=== PATIENT | female | born 1985 | race Caucasian/White ===

== ENCOUNTER 2024-11-21 18:14 | Observation (INO) ==
--- NOTE | 2024-11-21 18:43 | Emergency Department Note ---
Impression & Plan Abdominal pain, epigastric, Intractable abdominal pain ED Provider Note HISTORY OF PRESENT ILLNESS: Patient is a 38-year-old female presenting with epigastric abdominal pain. Patient reports that pain started a few days ago and has gotten progressively worse. She reports she has a history of chronic pancreatitis. She is from [place] and follows with a specialist for her chronic pancreatitis in [facility]. Reports that they were talking about potentially doing the Chasity procedure for her chronic pancreatitis. [facility] States that pain significantly worsened today while trying to eat some rice at lunch. She states the pain is in her epigastric region and radiates into her back. Denies any vomiting or diarrhea but does report nausea. Denies any fevers. Reports abdominal surgical history significant for sections. ROS: as above PHYSICAL EXAM: Constitutional: Patient appears in no acute distress. HENT: Head: Normocephalic and atraumatic. Eyes: EOMI, PERRL Mouth/Throat: Mucous membranes moist. Neck: Trachea midline. Neck supple. Cardiovascular: RRR, No murmurs, rubs or gallops. Intact distal pulses. Pulmonary/Chest: No respiratory distress. Breath sounds clear and equal bilaterally. No wheezes or rales. Abdominal: Abdomen soft, no rebound or guarding. Epigastric and RUQ TTP Musculoskeletal: No edema, tenderness or deformity noted. Skin: Warm and dry. No rash, erythema, pallor or cyanosis Psychiatric: Appropriate mood and affect for situation. Neurological: Alert and keenly responsive. CN II-XII grossly intact, moving all extremities equally and fully. MDM: - Vitals signs stable. - History obtained via patient. History as above. - Chronic conditions affecting care: Chronic pancreatitis - Differential diagnoses include, but are not limited to: ACS; pancreatitis; cholecystitis; bowel obstruction; peptic ulcer disease - Order placed for continuous cardiac monitoring. At this time, monitor showed rate of 70 bpm with normal sinus rhythm, per my interpretation. - External medical records reviewed. S - Laboratory workup interpreted by myself showed normal WBC; stable electrolytes; normal AST/ALT; normal total bilirubin; normal lactate; normal lipase; negative hCG - Patient given 1L NS, 1g IV tylenol, 4 mg IV zofran and 2 mg IV morphine in ER. - CT abdomen/pelvis with IV contrast negative for acute pathology. Noted to have some proximal pancreatic ductal dilatation and moderate atrophy of the body and tail. No appreciable acute pancreatitis but further evaluation was recommended to rule out pancreatic mass. - UA negative for infection - On reassessment, patient is still complaining of significant abdominal pain. Will discuss case with hospitalist service. - Discussion was had with mattress spring encaser about patient's case and need for admission - Hospitalist consulted for admission - Patient admitted to [facility] hospitalist service for further evaluation and management. ASSESSMENT AND PLAN: Diagnosis: Epigastric abdominal pain; intractable abdominal pain Plan: Admit Past Med/Surg History Problem List (Updated 11/22/24 @ 00:26 by Antoinette Barney MD) Intractable abdominal pain (Acute) Abdominal pain, epigastric (Acute) Abdominal pain Social History Smoking Status: Current every day smoker Tobacco Type: E-cigarettes / Vaping Preferred Language: Salvadorean Allergies Allergies Allergy/AdvReac Type Severity Reaction Status Date / Time aluminum Allergy Unknown ON [place] Verified 11/21/24 20:48 MED LIST Home Meds Home Medications Medication Instructions Recorded Confirmed acetaminophen 325 mg tablet 650 mg PO Q6H PRN Pain 11/21/24 11/21/24 (Tylenol) cholecalciferol (vitamin D3) 125 125 mcg PO DAILY 11/21/24 11/21/24 mcg (5,000 unit) tablet (Vitamin D3) clonazepam 1 mg tablet 2 mg PO Q4H PRN Alcohol Withdrawal 11/21/24 11/21/24 folic acid 1 mg tablet 1 mg PO DAILY 11/21/24 11/21/24 food supplemt, lactose-reduced 1 ea PO PC PRN IF PT UNABLE TO EAT. 11/21/24 11/21/24 (Ensure oral liquid) loperamide 2 mg capsule 2 mg PO Q4H PRN Diarrhea 11/21/24 11/21/24 melatonin 3 mg tablet 6 mg PO HS PRN Insomnia 11/21/24 11/21/24 multivitamin 1 tab PO DAILY 11/21/24 11/21/24 nicotine 21 mg/24 hr daily 1 patch transdermal DAILY PRN 11/21/24 11/21/24 transdermal patch Smoking Cessation nitrofurantoin 100 mg PO BID 11/21/24 11/21/24 monohydrate/macrocrystals 100 mg capsule (Macrobid) oxycodone 5 mg tablet 10 mg PO BID PRN Pain 11/21/24 11/21/24 pantoprazole 40 mg tablet,delayed 40 mg PO DAILY 11/21/24 11/21/24 release thiamine HCl (vitamin B1) 100 mg 100 mg PO DAILY 11/21/24 11/21/24 tablet (Vitamin B-1) trazodone 50 mg tablet 50 mg PO HS 11/21/24 11/21/24 Results & Data (ED) Vital Signs Vital Signs - 24 hr 11/21/24 18:16 11/21/24 18:35 11/21/24 18:38 Temperature 36.4 C L Temperature Source Oral Pulse Rate 87 81 77 Respiratory Rate 22 13 Blood Pressure 127/78 110/70 Blood Pressure Mean 94 93 Pulse Oximetry 97 100 Oxygen Delivery Method Room Air Sepsis Recent Fever Within 48 Hours No Sepsis New/Unexplained Change in Mental Status No Sepsis Action Taken by Nursing No Action Required 11/21/24 19:00 11/21/24 19:30 11/21/24 20:01 Temperature Temperature Source Pulse Rate 80 77 77 Respiratory Rate 16 16 16 Blood Pressure 96/74 L 104/69 133/98 Blood Pressure Mean 79 78 101 Pulse Oximetry 100 100 95 Oxygen Delivery Method Sepsis Recent Fever Within 48 Hours Sepsis New/Unexplained Change in Mental Status Sepsis Action Taken by Nursing 11/21/24 22:00 Temperature Temperature Source Pulse Rate 69 Respiratory Rate 14 Blood Pressure 121/92 Blood Pressure Mean 100 Pulse Oximetry 99 Oxygen Delivery Method Sepsis Recent Fever Within 48 Hours Sepsis New/Unexplained Change in Mental Status Sepsis Action Taken by Nursing Laboratory Data 11/21/24 18:35 11/21/24 18:35 Lab Results 11/21/24 Range/Units 18:35 WBC 6.09 (4.8-10.8) K/ul RBC 3.76 L (4.20-5.40) M/uL Hgb 11.1 L (12.0-16.0) g/dl Hct 33.7 L (37.0-47.0) % MCV 89.6 (80.0-100.0) fL MCH 29.5 (25.0-34.0) pg MCHC 32.9 (32.0-36.0) g/dL RDW Std Deviation 48.4 H (36.4-46.3) fL RDW Coeff of Jose 14.7 H (11.5-14.5) % Plt Count 277 (130-400) K/uL MPV 10.2 (9.4-12.4) fL Immature Gran % (Auto) 0.2 % Neut % (Auto) 55.6 % Lymph % (Auto) 32.0 % [place] % (Auto) 8.9 % Eos % (Auto) 2.6 % Baso % (Auto) 0.7 % Neut # (Auto) 3.39 (1.40-6.50) K/uL Lymph # (Auto) 1.95 (1.20-3.40) K/uL [place] # (Auto) 0.54 (0.11-0.59) K/uL Eos # (Auto) 0.16 (0.00-0.50) K/uL Baso # (Auto) 0.04 (0.00-0.20) K/uL Immature Gran # (Auto) 0.01 (0.01-0.20) K/uL Sodium 136 (136-145) mmol/L Potassium 4.1 (3.5-5.1) mmol/L Chloride 102 (98-107) mmol/L Carbon Dioxide 26 (21-32) mmol/L Anion Gap 8 (3-11) BUN 10 (6-23) mg/dl Creatinine 0.72 (0.6-1.2) mg/dl Est Cr Clr Drug Dosing 104.3 ml/min eGFR 110.37 BUN/Creatinine Ratio 13.9 (10-20) Glucose 112 H (70-99(Fasting)) mg/dl Lactate 1.3 (0.4-2.0) mmol/L Calcium 9.6 (8.6-10.3) mg/dl Total Bilirubin 0.2 (0.2-1.0) mg/dl AST 14 (13-39) U/L ALT 10 (7-52) U/L Alkaline Phosphatase 64 (34-104) U/L Total Protein 7.4 (6.0-8.3) gm/dl Albumin 4.0 (3.4-5.0) gm/dl Globulin 3.4 (2.5-4.0) gm/dl Albumin/Globulin Ratio 1.2 (0.9-2) Lipase 17 (11-82) U/L HCG, Qual Negative (Negative) Urine Color Yellow Urine Appearance Clear (Clear) Urine pH 6.5 (4.5-7.5) Ur Specific [place] 1.004 (1.000-1.030) Urine Protein Negative (Negative) Urine Glucose (UA) Negative (Negative) Urine Ketones Negative (Negative) Urine Blood Negative (Negative) Urine Nitrite Negative (Negative) Urine Bilirubin Negative (Negative) Urine Urobilinogen Negative (Negative) Ur Leukocyte Esterase Negative (Negative) Urine Comment Administered Medications Hydromorphone HCl (Hydromorphone Inj 0.5 Mg/0.5 Ml Syr) 0.5 mg IV Q4H PRN PRN Reason: Mod-Sev Pain (Scale 4-10) Stop: 12/05/24 23:25 Last Admin: 11/22/24 00:13 Dose: 0.5 mg Documented By: KELSY Discontinued Medications Hydromorphone HCl (Hydromorphone Inj 0.5 Mg/0.5 Ml Syr) 0.5 mg IV NOW STA Stop: 11/21/24 22:21 Last Admin: 11/21/24 22:39 Dose: 0.5 mg Documented By: KELSY Sodium Chloride (Nss) 1,000 mls @ 999 mls/hr IV .Q1H1M ONE Stop: 11/21/24 19:49 Last Infusion: 11/21/24 20:25 Dose: Infused Documented By: Admin: 11/21/24 19:29 Dose: 999 mls/hr Documented By: ANT Acetaminophen (Ofirmev) 1,000 mg in 100 mls @ 400 mls/hr IV NOW STA Stop: 11/21/24 19:03 Last Infusion: 11/21/24 19:42 Dose: Infused Documented By: Admin: 11/21/24 19:29 Dose: 400 mls/hr Documented By: ANT Famotidine (Pepcid 20mg Iv Push) 20 mg in 5 mls @ 2.5 mls/min IV NOW STA Stop: 11/21/24 22:21 Last Admin: 11/21/24 22:39 Dose: 2.5 mls/min Documented By: KELSY Ioversol (Optiray 320 100ml) 93 ml IV ONCE ONE Stop: 11/21/24 19:52 Last Admin: 11/21/24 19:51 Dose: 93 ml Documented By: KLAUDIA Morphine Sulfate (Morphine Sulfate 2 Mg/Ml Carp) 2 mg IV NOW STA Stop: 11/21/24 18:50 Last Admin: 11/21/24 19:29 Dose: 2 mg Documented By: ANT Ondansetron HCl (Ondansetron Inj 2 Mg/Ml 2 Ml Vial) 4 mg IV NOW STA Stop: 11/21/24 18:50 Last Admin: 11/21/24 19:29 Dose: 4 mg Documented By: ANT Imaging Data Radiologist's Impression: Abdomen/Pelvis CT 11/21/24 18:22 HISTORY: 10 out of 10 upper abdominal pain. Chronic pancreatitis. TECHNIQUE: Helical CT imaging of the abdomen and pelvis was performed with IV contrast. Images are presented in axial, sagittal, and coronal reformats. COMPARISON: None. FINDINGS: Lung Bases/Inferior Mediastinum: Unremarkable Liver: Unremarkable Gallbladder: Unremarkable Spleen: Unremarkable Adrenals: Unremarkable Pancreas: The pancreatic head and uncinate process appear unremarkable. The proximal pancreatic ductIs mildly dilated measuring up to 0.4 cm in diameter. There is moderate atrophy of the body and tail of the pancreas. No acute inflammation surrounding the pancreas. Kidneys: Unremarkable Stomach/Bowel: Distal esophagus, stomach, duodenum are unremarkable. The small bowel loops are normal in caliber. The colon is normal in caliber.Normal caliber appendix is identified. Lymph nodes: Unremarkable Vasculature: Unremarkable Pelvis: Urinary bladder is unremarkable. Fibroid along the uterine fundus. No suspicious adnexal mass. Small volume of nonspecific free pelvic fluid may be physiologic. Soft Tissues: Unremarkable Bones: Moderate degenerative disc disease at L5-S1. Mild degenerative changes elsewhere in the spine. IMPRESSION: 1. No acute findings in the abdomen or pelvis. 2. Proximal pancreatic duct is mildly dilated measuring 0.4 cm in diameter. Moderate atrophy of the body and tail of the pancreas. The pancreatic head and uncinate process appears normal in size and morphology. Further evaluation is recommended with pancreatic mass protocol abdominal MRI and MRCP to exclude the possibility of an occult pancreatic mass. 3. Numerous additional chronic and/or incidental findings as detailed above. ACT 112: Positive. There are findings on this exam that require communication between the performing entity and the patient following Patient Test Result Information Act ([place] ACT 112) guidelines. Electronically signed by Gaston Peña 11-21-2024 8:22 PM Discharge Plan Visit Data Chief Complaint: Abdominal Pain Stated Complaint: AB PAIN ED Provider: Antoinette Barney Discharge Problem: Abdominal pain, epigastric, Intractable abdominal pain Condition: Fair Discharge Instructions Interventions: ED Discharge Assessment Last Done: 11/21/24 23:26
[2024-11-21 18:50] LABS: Appearance Urine Clear (Clear); Glucose Urine UA Negative (Negative)
[2024-11-21 18:57] LABS: Hematocrit (blood only) 33.7 % (37.0-47.0); Hemoglobin 11.1 g/dl (12.0-16.0); Immature Granulocytes # (auto) 0.01 K/uL (0.01-0.20); Immature Granulocytes % (auto) 0.2 %; Mean Corpuscular Hemoglobin 29.5 pg (25.0-34.0); Mean Corpuscular Volume 89.6 fL (80.0-100.0); Platelet Count 277 K/uL (130-400); RDW Standard Deviation 48.4 fL (36.4-46.3); Red Blood Count 3.76 M/uL (4.20-5.40); White Blood Count 6.09 K/ul (4.8-10.8)
[2024-11-21 19:15] LABS: Alanine Aminotransferase 10.0 U/L (7-52); Albumin Globulin Ratio 1.2 (0.9-2); Alkaline Phosphatase 64.0 U/L (34-104); Anion Gap 8.0 (3-11); Bilirubin,Total 0.2 mg/dl (0.2-1.0); Blood Urea Nitrogen 10.0 mg/dl (6-23); Calcium 9.6 mg/dl (8.6-10.3); Carbon Dioxide 26.0 mmol/L (21-32); Chloride 102.0 mmol/L (98-107); Creatinine Clr Calc Pharmacy 104.3 ml/min; Globulin 3.4 gm/dl (2.5-4.0); Glucose 112.0 mg/dl (70-99(Fasting)); Lipase 17.0 U/L (11-82); Potassium 4.1 mmol/L (3.5-5.1); Sodium 136.0 mmol/L (136-145); Total Protein 7.4 gm/dl (6.0-8.3)
[2024-11-21 19:22] LABS: Pregnancy Test, Serum Negative (Negative)
[2024-11-21] MEDS: ACETAMINOPHEN 1,000 MG/100 ML VIAL IV STA (19:29)
[2024-11-21] MEDS: MoRPHine SULFATE 2 MG/ML CARP IV STA (19:29)
[2024-11-21] MEDS: ONDANSETRON INJ 2 MG/ML 2 ML VIAL IV STA (19:29)
[2024-11-21] MEDS: SODIUM CHLORIDE 0.9% 1,000 ML IV ONE (19:29)
[2024-11-21] MEDS: OPTIRAY 320 100ml IV ONE (19:51)
--- NOTE | 2024-11-21 20:23 | CT Scan Report ---
HISTORY: 10 out of 10 upper abdominal pain. Chronic pancreatitis. TECHNIQUE: Helical CT imaging of the abdomen and pelvis was performed with IV contrast. Images are presented in axial, sagittal, and coronal reformats. COMPARISON: None. FINDINGS: Lung Bases/Inferior Mediastinum: Unremarkable Liver: Unremarkable Gallbladder: Unremarkable Spleen: Unremarkable Adrenals: Unremarkable Pancreas: The pancreatic head and uncinate process appear unremarkable. The proximal pancreatic ductIs mildly dilated measuring up to 0.4 cm in diameter. There is moderate atrophy of the body and tail of the pancreas. No acute inflammation surrounding the pancreas. Kidneys: Unremarkable Stomach/Bowel: Distal esophagus, stomach, duodenum are unremarkable. The small bowel loops are normal in caliber. The colon is normal in caliber.Normal caliber appendix is identified. Lymph nodes: Unremarkable Vasculature: Unremarkable Pelvis: Urinary bladder is unremarkable. Fibroid along the uterine fundus. No suspicious adnexal mass. Small volume of nonspecific free pelvic fluid may be physiologic. Soft Tissues: Unremarkable Bones: Moderate degenerative disc disease at L5-S1. Mild degenerative changes elsewhere in the spine. IMPRESSION: 1. No acute findings in the abdomen or pelvis. 2. Proximal pancreatic duct is mildly dilated measuring 0.4 cm in diameter. Moderate atrophy of the body and tail of the pancreas. The pancreatic head and uncinate process appears normal in size and morphology. Further evaluation is recommended with pancreatic mass protocol abdominal MRI and MRCP to exclude the possibility of an occult pancreatic mass. 3. Numerous additional chronic and/or incidental findings as detailed above. ACT 112: Positive. There are findings on this exam that require communication between the performing entity and the patient following Patient Test Result Information Act ([place] ACT 112) guidelines. Electronically signed by Gaston Peña 11-21-2024 8:22 PM
--- NOTE | 2024-11-21 22:35 | History & Physical Report ---
Date of Service November 21, 2024 Assessment & Plan (1) Abdominal pain: Plan: 38-year-old female coming from [facility] ( on [facility] for suicidal ideation) with past medical significant for alcoholism, GERD, chronic pancreatitis as per patient comes because of abdominal pain. Patient states she is in [facility] for last 7 days. She was drinking prior to admission to [facility] but she states she was cutting back on alcohol and could not quantify how much she was drinking. Patient states she has chronic pancreatitis and she had 3 procedures done in the past in [facility] and 3 stents were placed and there is a plan for camille procedure. Since last couple of days she is having severe epigastric abdominal pain which is radiating to her back. Could not take deep breath because of pain. And also having lower chest pain. Denies any cough. Afebrile. No hea dache or runny nose. Has some sore throat. States she is having some diarrhea. Micturating okay. She is constantly crying and asking for pain medications and states she is hurting a lot. States Dilaudid 1 mg helps her pain. Hemodynamics are okay. Abdominal pain Epigastric region Patient states has history of chronic pancreatitis History of alcoholism CT abdomen pelvis shows proximal pancreatic duct mild dilated. Moderate atrophy of the body and tail the pancreas. And further evaluation recommended Will keep her n.p.o., IV fluids, IV Dilaudid as needed., IV Pepcid Continue home Protonix GI consult as needed for further recommendations Suicidal ideation Patient currently denies any thoughts to hurt herself or others Coming from [facility] One-on-one prn Psych consult in a.m. Anemia will follow stool for hemeoccult. iron studies nd vitamin b12 and folate levels DVT prophylaxis Lovenox follow hb Disposition Medical floor Full code. History of Present Illness Chief Complaint: Abdominal pain Primary Care Provider: NO PCP 38-year-old female coming from [facility] ( on [facility] for suicidal ideation) with past medical significant for alcoholism, GERD, chronic pancreatitis as per patient comes because of abdominal pain. Patient states she is in [facility] for last 7 days. She was drinking prior to admission to [facility] but she states she was cutting back on alcohol and could not quantify how much she was drinking. P atient states she has chronic pancreatitis and she had 3 procedures done in the past in [facility] and 3 stents were placed and there is a plan for camille procedure. Since last couple of days she is having severe epigastric abdominal pain which is radiating to her back. Could not take deep breath because of pain. And also having lower chest pain. Denies any cough. Afebrile. No headache or runny nose. Has some sore throat. States she is having some diarrhea. Micturating okay. She is constantly crying and asking for pain medications and states she is hurting a lot. States Dilaudid 1 mg helps her pain. Hemodynamics are okay. Past medical history. As mentioned above. Past surgical history. Patient says procedures for pancreatitis. Denies any other surgeries. Social history. Vapes. Drinks alcohol but could not confide. Denies any drug use. Family history. Denies any family history. Allergies Allergy/AdvReac Type Severity Reaction Status Date / Time aluminum Allergy Unknown ON [place] Verified 11/21/24 20:48 MED LIST Home Medications Medication Instructions Recorded Confirmed Type acetaminophen 325 mg tablet 650 mg PO Q6H PRN Pain 11/21/24 11/21/24 History (Tylenol) cholecalciferol (vitamin D3) 125 125 mcg PO DAILY 11/21/24 11/21/24 History mcg (5,000 unit) tablet (Vitamin D3) clonazepam 1 mg tablet 2 mg PO Q4H PRN Alcohol Withdrawal 11/21/24 11/21/24 History folic acid 1 mg tablet 1 mg PO DAILY 11/21/24 11/21/24 History food supplemt, lactose-reduced 1 ea PO PC PRN IF PT UNABLE TO EAT. 11/21/24 11/21/24 History (Ensure oral liquid) loperamide 2 mg capsule 2 mg PO Q4H PRN Diarrhea 11/21/24 11/21/24 History melatonin 3 mg tablet 6 mg PO HS PRN Insomnia 11/21/24 11/21/24 History multivitamin 1 tab PO DAILY 11/21/24 11/21/24 History nicotine 21 mg/24 hr daily 1 patch transdermal DAILY PRN 11/21/24 11/21/24 History transdermal patch Smoking Cessation nitrofurantoin 100 mg PO BID 11/21/24 11/21/24 History monohydrate/macrocrystals 100 mg capsule (Macrobid) oxycodone 5 mg tablet 10 mg PO BID PRN Pain 11/21/24 11/21/24 History pantoprazole 40 mg tablet,delayed 40 mg PO DAILY 11/21/24 11/21/24 History release thiamine HCl (vitamin B1) 100 mg 100 mg PO DAILY 11/21/24 11/21/24 History tablet (Vitamin B-1) trazodone 50 mg tablet 50 mg PO HS 11/21/24 11/21/24 History Past Med/Surg History Problem List (Updated 11/22/24 @ 00:26 by Antoinette Barney MD) Intractable abdominal pain (Acute) Abdominal pain, epigastric (Acute) Abdominal pain Social History Smoking Status: Current every day smoker Tobacco Type: E-cigarettes / Vaping Preferred Language: Burmese Review of Systems Review of Systems: All systems reviewed & are unremarkable except as noted in HPI & below Physical Exam Physical Exam: General-Not in distress. Crying Head- atraumatic Eyes- PERRL. ENT- oropharynx clear Neck- supple, no JVD. Lungs- clear to auscultation no wheezing or crackles. Heart- regular rhythm; no murmur, no gallop. Abdomen- normal bowel sounds, soft, epigastric tenderness with guarding present, no distension Extremities- no pretibial edema, no erythema seen Neuro- alert, oriented PERRL, no facial palsy; no dysarthria; moves extremities Results & Data Results & Data Vital Signs (Past 12 Hours) Vital Signs Temp Pulse Resp BP Pulse Ox O2 Del Method 11/21/24 20:01 77 16 133/98 95 11/21/24 19:30 77 16 104/69 100 11/21/24 19:00 80 16 96/74 L 100 11/21/24 18:38 77 11/21/24 18:35 81 13 110/70 100 11/21/24 18:16 36.4 C L 87 22 127/78 97 Room Air Diagnostic Findings Laboratory Results WBC 6.09 K/ul (4.8-10.8) 11/21/24 18:35 RBC 3.76 M/uL (4.20-5.40) L 11/21/24 18:35 Hgb 11.1 g/dl (12.0-16.0) L 11/21/24 18:35 Hct 33.7 % (37.0-47.0) L 11/21/24 18:35 MCV 89.6 fL (80.0-100.0) 11/21/24 18:35 MCH 29.5 pg (25.0-34.0) 11/21/24 18:35 MCHC 32.9 g/dL (32.0-36.0) 11/21/24 18:35 RDW Std Deviation 48.4 fL (36.4-46.3) H 11/21/24 18:35 RDW Coeff of Jose 14.7 % (11.5-14.5) H 11/21/24 18:35 Plt Count 277 K/uL (130-400) 11/21/24 18:35 MPV 10.2 fL (9.4-12.4) 11/21/24 18:35 Immature Gran % (Auto) 0.2 % 11/21/24 18:35 Neut % (Auto) 55.6 % 11/21/24 18:35 Lymph % (Auto) 32.0 % 11/21/24 18:35 [place] % (Auto) 8.9 % 11/21/24 18:35 Eos % (Auto) 2.6 % 11/21/24 18:35 Baso % (Auto) 0.7 % 11/21/24 18:35 Neut # (Auto) 3.39 K/uL (1.40-6.50) 11/21/24 18:35 Lymph # (Auto) 1.95 K/uL (1.20-3.40) 11/21/24 18:35 [place] # (Auto) 0.54 K/uL (0.11-0.59) 11/21/24 18:35 Eos # (Auto) 0.16 K/uL (0.00-0.50) 11/21/24 18:35 Baso # (Auto) 0.04 K/uL (0.00-0.20) 11/21/24 18:35 Immature Gran # (Auto) 0.01 K/uL (0.01-0.20) 11/21/24 18:35 Sodium 136 mmol/L (136-145) 11/21/24 18:35 Potassium 4.1 mmol/L (3.5-5.1) 11/21/24 18:35 Chloride 102 mmol/L (98-107) 11/21/24 18:35 Carbon Dioxide 26 mmol/L (21-32) 11/21/24 18:35 Anion Gap 8 (3-11) 11/21/24 18:35 BUN 10 mg/dl (6-23) 11/21/24 18:35 Creatinine 0.72 mg/dl (0.6-1.2) 11/21/24 18:35 Est Cr Clr Drug Dosing 104.3 ml/min 11/21/24 18:35 eGFR 110.37 11/21/24 18:35 BUN/Creatinine Ratio 13.9 (10-20) 11/21/24 18:35 Glucose 112 mg/dl (70-99(Fasting)) H 11/21/24 18:35 Lactate 1.3 mmol/L (0.4-2.0) 11/21/24 18:35 Calcium 9.6 mg/dl (8.6-10.3) 11/21/24 18:35 Total Bilirubin 0.2 mg/dl (0.2-1.0) 11/21/24 18:35 AST 14 U/L (13-39) 11/21/24 18:35 ALT 10 U/L (7-52) 11/21/24 18:35 Alkaline Phosphatase 64 U/L (34-104) 11/21/24 18:35 Total Protein 7.4 gm/dl (6.0-8.3) 11/21/24 18:35 Albumin 4.0 gm/dl (3.4-5.0) 11/21/24 18:35 Globulin 3.4 gm/dl (2.5-4.0) 11/21/24 18:35 Albumin/Globulin Ratio 1.2 (0.9-2) 11/21/24 18:35 Lipase 17 U/L (11-82) 11/21/24 18:35 HCG, Qual Negative (Negative) 11/21/24 18:35 Urine Color Yellow 11/21/24 18:35 Urine Appearance Clear (Clear) 11/21/24 18:35 Urine pH 6.5 (4.5-7.5) 11/21/24 18:35 Ur Specific [place] 1.004 (1.000-1.030) 11/21/24 18:35 Urine Protein Negative (Negative) 11/21/24 18:35 Urine Glucose (UA) Negative (Negative) 11/21/24 18:35 Urine Ketones Negative (Negative) 11/21/24 18:35 Urine Blood Negative (Negative) 11/21/24 18:35 Urine Nitrite Negative (Negative) 11/21/24 18:35 Urine Bilirubin Negative (Negative) 11/21/24 18:35 Urine Urobilinogen Negative (Negative) 11/21/24 18:35 Ur Leukocyte Esterase Negative (Negative) 11/21/24 18:35 Urine Comment 11/21/24 18:35 Impressions Abdomen/Pelvis CT 11/21/24 18:22 HISTORY: 10 out of 10 upper abdominal pain. Chronic pancreatitis. TECHNIQUE: Helical CT imaging of the abdomen and pelvis was performed with IV contrast. Images are presented in axial, sagittal, and coronal reformats. COMPARISON: None. FINDINGS: Lung Bases/Inferior Mediastinum: Unremarkable Liver: Unremarkable Gallbladder: Unremarkable Spleen: Unremarkable Adrenals: Unremarkable Pancreas: The pancreatic head and uncinate process appear unremarkable. The proximal pancreatic ductIs mildly dilated measuring up to 0.4 cm in diameter. There is moderate atrophy of the body and tail of the pancreas. No acute inflammation surrounding the pancreas. Kidneys: Unremarkable Stomach/Bowel: Distal esophagus, stomach, duodenum are unremarkable. The small bowel loops are normal in caliber. The colon is normal in caliber.Normal caliber appendix is identified. Lymph nodes: Unremarkable Vasculature: Unremarkable Pelvis: Urinary bladder is unremarkable. Fibroid along the uterine fundus. No suspicious adnexal mass. Small volume of nonspecific free pelvic fluid may be physiologic. Soft Tissues: Unremarkable Bones: Moderate degenerative disc disease at L5-S1. Mild degenerative changes elsewhere in the spine. IMPRESSION: 1. No acute findings in the abdomen or pelvis. 2. Proximal pancreatic duct is mildly dilated measuring 0.4 cm in diameter. Moderate atrophy of the body and tail of the pancreas. The pancreatic head and uncinate process appears normal in size and morphology. Further evaluation is recommended with pancreatic mass protocol abdominal MRI and MRCP to exclude the possibility of an occult pancreatic mass. 3. Numerous additional chronic and/or incidental findings as detailed above. ACT 112: Positive. There are findings on this exam that require communication between the performing entity and the patient following Patient Test Result Information Act ([place] ACT 112) guidelines. Electronically signed by Gaston Peña 11-21-2024 8:22 PM Code Status & VTE Plan VTE Prophylaxis Plan VTE Prophylaxis will be ordered: Yes
[2024-11-21] MEDS: FAMOTIDINE 20MG IV PUSH 20 MG/5 ML SYR IV STA (22:39)
[2024-11-21] MEDS: HYDROmorphone INJ 0.5 MG/0.5 ML SYR IV STA (22:39)
[2024-11-21] MEDS ORDERED: ONDANSETRON INJ 2 MG/ML 2 ML VIAL IV PRN (23:26)
[2024-11-21] MEDS ORDERED: clonazePAM 1 MG TAB PO PRN (23:26)
[2024-11-21] MEDS ORDERED: ACETAMINOPHEN 325 MG TAB PO PRN (23:26)
[2024-11-21] MEDS ORDERED: NON-FORMULARY MEDICATION (Food Supplemt, Lactose-Reduced [Ensure] Liquid) PO PRN (23:26)
[2024-11-22] MEDS: HYDROmorphone INJ 0.5 MG/0.5 ML SYR IV PRN (00:13)
[2024-11-22] MEDS: MELATONIN 3 MG TAB PO PRN (00:38)
[2024-11-22] MEDS: LACTATED RINGER'S 1,000 ML IV SCH (00:38)
[2024-11-22] MEDS ORDERED: ACETAMINOPHEN 1,000 MG/100 ML VIAL IV PRN (04:33)
[2024-11-22] MEDS: HYDROmorphone INJ 0.5 MG/0.5 ML SYR IV STA (05:02)
[2024-11-22 05:05] LABS: Hematocrit (blood only) 31.5 % (37.0-47.0); Hemoglobin 10.2 g/dl (12.0-16.0); Immature Granulocytes # (auto) 0.01 K/uL (0.01-0.20); Immature Granulocytes % (auto) 0.2 %; Mean Corpuscular Hemoglobin 29.1 pg (25.0-34.0); Mean Corpuscular Volume 90.0 fL (80.0-100.0); Platelet Count 222 K/uL (130-400); RDW Standard Deviation 49.0 fL (36.4-46.3); Red Blood Count 3.50 M/uL (4.20-5.40); White Blood Count 6.07 K/ul (4.8-10.8)
[2024-11-22 05:23] LABS: Anion Gap 5.0 (3-11); Blood Urea Nitrogen 8.0 mg/dl (6-23); Calcium 9.0 mg/dl (8.6-10.3); Carbon Dioxide 27.0 mmol/L (21-32); Chloride 104.0 mmol/L (98-107); Creatinine Clr Calc Pharmacy 100.1 ml/min; Glucose 84.0 mg/dl (70-99(Fasting)); Magnesium 1.7 mg/dl (1.7-2.4); Potassium 3.9 mmol/L (3.5-5.1); Sodium 136.0 mmol/L (136-145)
--- NOTE | 2024-11-22 07:46 | Hospitalist Progress Note ---
Date of Service November 22, 2024 Assessment & Plan (1) Abdominal pain: Plan: 38 yo F coming from [facility] ( on 201[facility] for suicidal ideation) with past medical significant for alcoholism, GERD, chronic pancreatitis as per patient comes because of abdominal pain. Patient states she is in [facility] for last 7 days. She was drinking prior to admission to [facility] but she states she was cutting back on alcohol and could not quantify how much she was drinking. Patient states she has chronic pancreatitis and she had 3 procedures done in the past in [facility] and 3 stents were placed and there is a plan for camille procedure. Since last couple of days she is having severe epigastric abdominal pain which is radiating to her back. Could not take deep breath because of pain. And also having lower chest pain. Denies any cough. Afebrile. No headache or runny nose. Has some sore throat. States she is having some diarrhea. Micturating okay. She is constantly crying and asking for pain medications and states she is hurting a lot. States Dilaudid 1 mg helps her pain. Hemodynamics are okay. Abdominal pain Epigastric region Patient states has history of chronic pancreatitis History of alcoholism CT abdomen pelvis shows proximal pancreatic duct mild dilated. Moderate atrophy of the body and tail the pancreas. And further evaluation recommended Will keep her n.p.o., IV fluids, IV Dilaudid as needed., IV Pepcid Continue home Protonix GI consulted and discussed with - will try to obtain med. records from [place] , recommend clear liquid diet, as above pt insists on advancing diet and very upset about not having any solid food. Discussed in detail with the pt that it would not be recommended at this time, pt understands but wishes to advance her diet anyway. Will advance and will closely monitor. Suicidal ideation Patient currently denies any thoughts to hurt herself or others Coming from [facility] Psychiatry consulted and discussed with - pls see their note for full detail. Pt can leave AMA. Will start gabapentin 300 tid. Anemia will follow stool for hemeoccult. iron studies nd vitamin b12 and folate levels DVT prophylaxis Lovenox follow hb Disposition Medical floor Full code. Admission and Anticipated Discharge Date Admission Date: November 21, 2024 Subjective Pt seen in follow up Admitted from [facility] (there for SI) Presents w/ abdominal pain , hx of chronic pancreatitis GI, Psych consulted Currently sitting up in bed in [facility], but persists on trying to eat solid food. Denies fever, chills, chest pain , shortness of breath. Reports flatus but no BM in a while. Reports she could not eat at [place]. Discussed w/ psychiatry - pt can leave AMA, recommend starting gabapentin 300 tid Discussed with GI - will try to obtain medical records from [place], does not recommend advancing diet quite yet. Discussed w/ pt in detail that advancing diet is not recommended at this time and discussed her previous hospitalization and treatments. She understands that we would treat w/ bowel rest, IVF and advance her diet as tolerated, she is very upset about her diet and wishes to try solid food. Discussed w/ RN - will advance diet and will cont. to closely monitor. Pt also agrees to closely monitor her response to food. Review of Systems Review of Systems: All systems reviewed & are unremarkable except as noted in Subjective Physical Exam Physical Exam: General- obese adult F, Not in distress. Crying Head- atraumatic Eyes- PERRL. Neck- supple, no JVD. Lungs- clear to auscultation no wheezing or crackles. Heart- regular rhythm; no murmur Abdomen- normal bowel sounds, soft, +epigastric tenderness, no distension, no guarding Extremities- no pretibial edema, no erythema seen, moves extremities Neuro- alert, oriented PERRL, no facial palsy; no dysarthria; moves extremities Results & Data Results & Data Vital Signs (Past 12 Hours) Vital Signs Pulse Pulse Resp BP BP Pulse Ox O2 Del Method 11/22/24 06:00 78 16 113/74 99 Room Air 11/22/24 02:13 70 11/21/24 22:00 69 14 121/92 99 11/21/24 20:01 77 16 133/98 95 Laboratory Results 11/22/24 11/21/24 Range/Units 04:56 18:35 WBC 6.07 6.09 (4.8-10.8) K/ul RBC 3.50 L 3.76 L (4.20-5.40) M/uL Hgb 10.2 L 11.1 L (12.0-16.0) g/dl Hct 31.5 L 33.7 L (37.0-47.0) % MCV 90.0 89.6 (80.0-100.0) fL MCH 29.1 29.5 (25.0-34.0) pg MCHC 32.4 32.9 (32.0-36.0) g/dL RDW Std Deviation 49.0 H 48.4 H (36.4-46.3) fL RDW Coeff of Jose 14.9 H 14.7 H (11.5-14.5) % Plt Count 222 277 (130-400) K/uL MPV 10.2 10.2 (9.4-12.4) fL Immature Gran % (Auto) 0.2 0.2 % Neut % (Auto) 49.1 55.6 % Lymph % (Auto) 37.6 32.0 % [place] % (Auto) 9.6 8.9 % Eos % (Auto) 2.8 2.6 % Baso % (Auto) 0.7 0.7 % Neut # (Auto) 2.99 3.39 (1.40-6.50) K/uL Lymph # (Auto) 2.28 1.95 (1.20-3.40) K/uL [place] # (Auto) 0.58 0.54 (0.11-0.59) K/uL Eos # (Auto) 0.17 0.16 (0.00-0.50) K/uL Baso # (Auto) 0.04 0.04 (0.00-0.20) K/uL Immature Gran # (Auto) 0.01 0.01 (0.01-0.20) K/uL Sodium 136 136 (136-145) mmol/L Potassium 3.9 4.1 (3.5-5.1) mmol/L Chloride 104 102 (98-107) mmol/L Carbon Dioxide 27 26 (21-32) mmol/L Anion Gap 5 8 (3-11) BUN 8 10 (6-23) mg/dl Creatinine 0.75 0.72 (0.6-1.2) mg/dl Est Cr Clr Drug Dosing 100.1 104.3 ml/min eGFR 105.09 110.37 BUN/Creatinine Ratio 10.7 13.9 (10-20) Glucose 84 112 H (70-99(Fasting)) mg/dl Lactate 1.3 (0.4-2.0) mmol/L Calcium 9.0 9.6 (8.6-10.3) mg/dl Magnesium 1.7 (1.7-2.4) mg/dl Total Bilirubin 0.2 (0.2-1.0) mg/dl AST 14 (13-39) U/L ALT 10 (7-52) U/L Alkaline Phosphatase 64 (34-104) U/L Total Protein 7.4 (6.0-8.3) gm/dl Albumin 4.0 (3.4-5.0) gm/dl Globulin 3.4 (2.5-4.0) gm/dl Albumin/Globulin Ratio 1.2 (0.9-2) Lipase 17 (11-82) U/L HCG, Qual Negative (Negative) Urine Color Yellow Urine Appearance Clear (Clear) Urine pH 6.5 (4.5-7.5) Ur Specific [place] 1.004 (1.000-1.030) Urine Protein Negative (Negative) Urine Glucose (UA) Negative (Negative) Urine Ketones Negative (Negative) Urine Blood Negative (Negative) Urine Nitrite Negative (Negative) Urine Bilirubin Negative (Negative) Urine Urobilinogen Negative (Negative) Ur Leukocyte Esterase Negative (Negative) Urine Comment Medications Administered Current Inpatient Medications Acetaminophen (Acetaminophen 325 Mg Tab) 650 mg PO Q4H PRN PRN Reason: pain/fever Stop: 12/21/24 23:25 Clonazepam (Clonazepam 1 Mg Tab) 2 mg PO Q4H PRN PRN Reason: Alcohol Withdrawal Stop: 12/21/24 23:25 Enoxaparin Sodium (Enoxaparin Inj 40 Mg/0.4 Ml Syr) 40 mg SQ Q24H [facility] Stop: 12/22/24 08:59 Folic Acid (Folic Acid 1 Mg Tab) 1 mg PO DAILY [facility] Stop: 12/22/24 08:59 Hydromorphone HCl (Hydromorphone Inj 0.5 Mg/0.5 Ml Syr) 0.5 mg IV Q4H PRN PRN Reason: Mod-Sev Pain (Scale 4-10) Stop: 12/05/24 23:25 Last Admin: 11/22/24 04:27 Dose: 0.5 mg Lactated Ringer's (Lr) 1,000 mls @ 125 mls/hr IV .Q8H [facility] Stop: 11/24/24 23:25 Last Admin: 11/22/24 00:38 Dose: 125 mls/hr Famotidine (Pepcid 20mg Iv Push) 20 mg in 5 mls @ 2.5 mls/min IV Q12H [facility] Stop: 12/22/24 08:59 Acetaminophen (Ofirmev) 1,000 mg in 100 mls @ 400 mls/hr IV Q8H PRN PRN Reason: Pain or Fever Stop: 11/25/24 04:32 Magnesium Sulfate/Dextrose (Magnesium Sulfate / D5w) 1 gm in 100 mls @ 50 mls/hr IV ONE ONE Stop: 11/22/24 09:42 Melatonin (Melatonin 3 Mg Tab) 6 mg PO HS PRN PRN Reason: Insomnia Stop: 12/21/24 23:25 Last Admin: 11/22/24 00:38 Dose: 6 mg Multivitamins (Multivitamin Tab) 1 tab PO DAILY [facility] Stop: 12/22/24 08:59 Nitrofurantoin Macrocrystals (Nitrofurantoin Monohydrate 100 Mg Cap) 100 mg PO BID [facility] Stop: 11/23/24 23:59 Ondansetron HCl (Ondansetron Inj 2 Mg/Ml 2 Ml Vial) 4 mg IV Q6H PRN PRN Reason: Nausea Stop: 12/21/24 23:25 Pantoprazole Sodium (Pantoprazole 40 Mg Tab) 40 mg PO DAILY [facility] Stop: 12/22/24 08:59 Thiamine HCl (Thiamine Hcl 100 Mg Tab) 100 mg PO DAILY [facility] Stop: 12/22/24 08:59 Trazodone HCl (Trazodone Hcl 50 Mg Tab) 50 mg PO HS [facility] Stop: 12/22/24 20:59 Vitamin D (Cholecalciferol 125 Mcg (5,000 Units) Tab) 125 mcg PO DAILY [facility] Stop: 12/22/24 08:59
[2024-11-22 08:31] LABS: Iron 32 mcg/dl (35-150); Total Iron Binding Cap Calc 435 mcg/dl (250-450); Transferrin 311 mg/dl (200-360); Transferrin (FE) Percent Satur 7 % (15-50)
[2024-11-22] MEDS: MAGNESIUM SULFATE / D5W 1 GM/100 ML BAG IV ONE (08:35)
[2024-11-22] MEDS: FOLIC ACID 1 MG TAB PO SCH (08:39)
[2024-11-22] MEDS: CHOLECALCIFEROL 125 MCG (5,000 UNITS) TAB PO SCH (08:39)
[2024-11-22] MEDS: MULTIVITAMIN TAB PO SCH (08:39)
[2024-11-22] MEDS: FAMOTIDINE 20MG IV PUSH 20 MG/5 ML SYR IV SCH (08:39)
[2024-11-22] MEDS: ENOXAPARIN INJ 40 MG/0.4 ML SYR SQ SCH (08:40)
[2024-11-22] MEDS: THIAMINE HCL 100 MG TAB PO SCH (08:40)
[2024-11-22] MEDS: NITROFURANTOIN MONOHYDRATE 100 MG CAP PO SCH (08:40)
[2024-11-22 08:43] LABS: Folate (Folic Acid),Ser orPlas 15.56 ng/ml (>5.38)
[2024-11-22 08:44] LABS: Vitamin B12 197.0 pg/ml (180-914)
--- NOTE | 2024-11-22 09:04 | Gastrointestinal Consultation ---
Date of Consultation November 22, 2024 Assessment & Plan (1) Intractable abdominal pain: This could be consistent with known history of chronic pancreatitis. Will need to obtain records from [facility] to confirm diagnosis. In the meantime need to treat her for chronic pancreatitis flare. Recommend Dilaudid 1 mg IV every 4 hours which has helped in prior episodes. Observe for any evidence of alcohol withdrawal symptoms despite history of stopping alcohol recently. Further management once history confirmed by [facility]. (2) Chronic pancreatitis: History of Present Illness Reason for Consultation: Chronic pancreatitis Attending Physician: David Ambrosio MD History of Present Illness Patient was well until 3 years ago when she started presenting with recurrent abdominal pain diagnosed as chronic pancreatitis. The etiology may be related to an added comical variant of her pancreatic duct. She is had trials of endoscopic stents which have not helped. She is presently being evaluated for a Chasity procedure at [facility]. She presents now with recurrent abdominal pain consistent with chronic pancreatitis symptoms. Denies any nausea vomiting fever chills. She has a history of alcohol use which she has stopped and she also stopped smoking. She has failed trials of pancreatic enzyme supplementation. Allergies Allergy/AdvReac Type Severity Reaction Status Date / Time aluminum Allergy Unknown ON [facility] Verified 11/21/24 20:48 MED LIST Home Medications Medication Instructions Recorded Confirmed Type acetaminophen 325 mg tablet 650 mg PO Q6H PRN Pain 11/21/24 11/21/24 History (Tylenol) cholecalciferol (vitamin D3) 125 125 mcg PO DAILY 11/21/24 11/21/24 History mcg (5,000 unit) tablet (Vitamin D3) clonazepam 1 mg tablet 2 mg PO Q4H PRN Alcohol Withdrawal 11/21/24 11/21/24 History folic acid 1 mg tablet 1 mg PO DAILY 11/21/24 11/21/24 History food supplemt, lactose-reduced 1 ea PO PC PRN IF PT UNABLE TO EAT. 11/21/24 11/21/24 History (Ensure oral liquid) loperamide 2 mg capsule 2 mg PO Q4H PRN Diarrhea 11/21/24 11/21/24 History melatonin 3 mg tablet 6 mg PO HS PRN Insomnia 11/21/24 11/21/24 History multivitamin 1 tab PO DAILY 11/21/24 11/21/24 History nicotine 21 mg/24 hr daily 1 patch transdermal DAILY PRN 11/21/24 11/21/24 History transdermal patch Smoking Cessation nitrofurantoin 100 mg PO BID 11/21/24 11/21/24 History monohydrate/macrocrystals 100 mg capsule (Macrobid) oxycodone 5 mg tablet 10 mg PO BID PRN Pain 11/21/24 11/21/24 History pantoprazole 40 mg tablet,delayed 40 mg PO DAILY 11/21/24 11/21/24 History release thiamine HCl (vitamin B1) 100 mg 100 mg PO DAILY 11/21/24 11/21/24 History tablet (Vitamin B-1) trazodone 50 mg tablet 50 mg PO HS 11/21/24 11/21/24 History Patient History Social History Smoking Status: Current every day smoker Tobacco Type: E-cigarettes / Vaping Preferred Language: Swedish Review of Systems Review of Systems: No fever No chills No SOB No CP GI as per HPI Constitutional: Physical Exam Physical Exam: Eyes; anicteric HENT No masses Chest clear to A Cor S1, S2 physiologic Abd: softer mild epigastric tenderness no rebound no guarding no masses Ext no edema Results & Data Vital Signs (Past 12 Hours) Vital Signs Pulse Pulse Resp BP BP Pulse Ox O2 Del Method 11/22/24 06:00 78 16 113/74 99 Room Air 11/22/24 02:13 70 11/21/24 22:00 69 14 121/92 99 Laboratory Results Laboratory Results - last 48 hr 11/21/24 11/22/24 18:35 04:56 WBC 6.09 6.07 RBC 3.76 L 3.50 L Hgb 11.1 L 10.2 L Hct 33.7 L 31.5 L MCV 89.6 90.0 MCH 29.5 29.1 MCHC 32.9 32.4 RDW Std Deviation 48.4 H 49.0 H RDW Coeff of Jose 14.7 H 14.9 H Plt Count 277 222 MPV 10.2 10.2 Immature Gran % (Auto) 0.2 0.2 Neut % (Auto) 55.6 49.1 Lymph % (Auto) 32.0 37.6 Bremer % (Auto) 8.9 9.6 Eos % (Auto) 2.6 2.8 Baso % (Auto) 0.7 0.7 Neut # (Auto) 3.39 2.99 Lymph # (Auto) 1.95 2.28 Bremer # (Auto) 0.54 0.58 Eos # (Auto) 0.16 0.17 Baso # (Auto) 0.04 0.04 Immature Gran # (Auto) 0.01 0.01 Sodium 136 136 Potassium 4.1 3.9 Chloride 102 104 Carbon Dioxide 26 27 Anion Gap 8 5 BUN 10 8 Creatinine 0.72 0.75 Est Cr Clr Drug Dosing 104.3 100.1 eGFR 110.37 105.09 BUN/Creatinine Ratio 13.9 10.7 Glucose 112 H 84 Lactate 1.3 Calcium 9.6 9.0 Magnesium 1.7 Iron 32 L TIBC 435 Transferrin 311 Transferrin % Sat 7 L Total Bilirubin 0.2 AST 14 ALT 10 Alkaline Phosphatase 64 Total Protein 7.4 Albumin 4.0 Globulin 3.4 Albumin/Globulin Ratio 1.2 Lipase 17 Vitamin B12 197 Folate 15.56 HCG, Qual Negative Urine Color Yellow Urine Appearance Clear Urine pH 6.5 Ur Specific [place] 1.004 Urine Protein Negative Urine Glucose (UA) Negative Urine Ketones Negative Urine Blood Negative Urine Nitrite Negative Urine Bilirubin Negative Urine Urobilinogen Negative Ur Leukocyte Esterase Negative Urine Comment Diagnostic Findings Abdomen/Pelvis CT 11/21/24 18:22 HISTORY: 10 out of 10 upper abdominal pain. Chronic pancreatitis. TECHNIQUE: Helical CT imaging of the abdomen and pelvis was performed with IV contrast. Images are presented in axial, sagittal, and coronal reformats. COMPARISON: None. FINDINGS: Lung Bases/Inferior Mediastinum: Unremarkable Liver: Unremarkable Gallbladder: Unremarkable Spleen: Unremarkable Adrenals: Unremarkable Pancreas: The pancreatic head and uncinate process appear unremarkable. The proximal pancreatic ductIs mildly dilated measuring up to 0.4 cm in diameter. There is moderate atrophy of the body and tail of the pancreas. No acute inflammation surrounding the pancreas. Kidneys: Unremarkable Stomach/Bowel: Distal esophagus, stomach, duodenum are unremarkable. The small bowel loops are normal in caliber. The colon is normal in caliber.Normal caliber appendix is identified. Lymph nodes: Unremarkable Vasculature: Unremarkable Pelvis: Urinary bladder is unremarkable. Fibroid along the uterine fundus. No suspicious adnexal mass. Small volume of nonspecific free pelvic fluid may be physiologic. Soft Tissues: Unremarkable Bones: Moderate degenerative disc disease at L5-S1. Mild degenerative changes elsewhere in the spine. IMPRESSION: 1. No acute findings in the abdomen or pelvis. 2. Proximal pancreatic duct is mildly dilated measuring 0.4 cm in diameter. Moderate atrophy of the body and tail of the pancreas. The pancreatic head and uncinate process appears normal in size and morphology. Further evaluation is recommended with pancreatic mass protocol abdominal MRI and MRCP to exclude the possibility of an occult pancreatic mass. 3. Numerous additional chronic and/or incidental findings as detailed above. ACT 112: Positive. There are findings on this exam that require communication between the performing entity and the patient following Patient Test Result Information Act ([place] ACT 112) guidelines. Electronically signed by Gaston Peña 11-21-2024 8:22 PM PG Care Time/CCT Total # of Minutes Spent Total Time Spent with Patient: Total time spent is greater than 50% in coordination of care (as documented) at patient's floor/unit and/or counseling patient: Coding Level of Care Code 82137 INT INP/OBS CARE 2/55MIN Diagnoses Intractable abdominal pain R10.9 Chronic pancreatitis K86.1
[2024-11-22] MEDS: HYDROmorphone INJ 1 MG/ML SYRINGE IV PRN (09:24)
[2024-11-22] MEDS: NICOTINE 21 MG/24 HR TDSY TD SCH (09:24)
[2024-11-22] MEDS: REMOVE NICODERM PATCH SCH (10:54)
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
[2024-11-22 15:20] VITALS: RESP 18
[2024-11-22] MEDS: GABAPENTIN 300 MG CAP PO SCH (16:04)
[2024-11-22 22:51] VITALS: TEMP 97.5
[2024-11-23 06:16] LABS: Hematocrit (blood only) 28.2 % (37.0-47.0); Hemoglobin 9.4 g/dl (12.0-16.0); Mean Corpuscular Hemoglobin 30.3 pg (25.0-34.0); Mean Corpuscular Volume 91.0 fL (80.0-100.0); Platelet Count 223 K/uL (130-400); RDW Standard Deviation 49.7 fL (36.4-46.3); Red Blood Count 3.10 M/uL (4.20-5.40); White Blood Count 4.10 K/ul (4.8-10.8)
[2024-11-23 06:36] LABS: Anion Gap 4.0 (3-11); Blood Urea Nitrogen 9.0 mg/dl (6-23); Calcium 8.7 mg/dl (8.6-10.3); Carbon Dioxide 30.0 mmol/L (21-32); Chloride 105.0 mmol/L (98-107); Creatinine Clr Calc Pharmacy 93.8 ml/min; Glucose 107.0 mg/dl (70-99(Fasting)); Magnesium 1.8 mg/dl (1.7-2.4); Potassium 4.0 mmol/L (3.5-5.1); Sodium 139.0 mmol/L (136-145)
[2024-11-23 07:56] VITALS: BP 114/74; PULSE 81; O2SAT 96
--- NOTE | 2024-11-23 09:57 | Gastroenterology Progress Note ---
Date of Service November 23, 2024 Assessment & Plan (1) Chronic pancreatitis: Plan: 38 year old female with reported history of chronic pancreatitis following with PAU w/ tentative plan for Chasity procedure who is admitted w/ acute on chronic abd pain CTAP w/o acute findings but mild dilation of PD w/ moderate atrophy of the body and tail, lfts and lipase non-elevated. This AM she is pain free, tolerating oral intake and is requesting to be discharged. Recommend follow up with her specialist at [facility]. Alcohol cessation recommended. Low fat diet as tolerated. She tells me she has had testing already completed such as EUS/ERCP and has had stenting of her PD in the past. She notes she has had numerous bouts of acute on chronic pancreatitis and was recommend she proceed w/ the Chasity procedure. As she is not local and was traveling through the area (she lives in [place] and boyfriend lives three hours away) we will not arrange a HD appt through our system. I spent a total of 40 minutes on the date of service in review of patient's record, and previously obtained information in person and appropriate medical visit, discussion and education of plan, with patient and/or caregiver, placing orders for tests/referral/procedures as medically necessary and documentation of pertinent clinical information in patient's medical records for their visit today. Admission and Anticipated Discharge Date Admission Date: November 21, 2024 Supervising Physician Co-Signing Physician Notes I saw and examined this patient with our nurse practitioner and agree with her assessment and plan. Clinically improved. Resolving pancreatitis flare. Tolerating regular diet. Okay for discharge from GI standpoint. She will follow-up with her primary GI team at [facility] in [place]. Subjective She notes her pain is resolved, is tolerating oral intake and is requesting to go home. No fever, chills, CP, SOB. Review of Systems Review of Systems: All other findings negative except as noted in HPI. Physical Exam Gastrointestinal (Abdomen): normal bowel sounds, soft, nontender, no hepatosplenomegaly Results & Data Results & Data Vital Signs (Past 12 Hours) Vital Signs Temp Pulse Resp BP Pulse Ox O2 Del Method 11/23/24 07:17 97.5 F L 81 18 114/74 96 Room Air 11/22/24 22:51 97.5 F L 86 18 105/69 95 Room Air Laboratory Results 11/23/24 Range/Units 05:35 WBC 4.10 L (4.8-10.8) K/ul RBC 3.10 L (4.20-5.40) M/uL Hgb 9.4 L (12.0-16.0) g/dl Hct 28.2 L (37.0-47.0) % MCV 91.0 (80.0-100.0) fL MCH 30.3 (25.0-34.0) pg MCHC 33.3 (32.0-36.0) g/dL RDW Std Deviation 49.7 H (36.4-46.3) fL RDW Coeff of Jose 14.9 H (11.5-14.5) % Plt Count 223 (130-400) K/uL MPV 10.3 (9.4-12.4) fL Sodium 139 (136-145) mmol/L Potassium 4.0 (3.5-5.1) mmol/L Chloride 105 (98-107) mmol/L Carbon Dioxide 30 (21-32) mmol/L Anion Gap 4 (3-11) BUN 9 (6-23) mg/dl Creatinine 0.80 (0.6-1.2) mg/dl Est Cr Clr Drug Dosing 93.8 ml/min eGFR 97.26 BUN/Creatinine Ratio 11.3 (10-20) Glucose 107 H (70-99(Fasting)) mg/dl Calcium 8.7 (8.6-10.3) mg/dl Phosphorus 4.9 (2.5-4.9) mg/dl Magnesium 1.8 (1.7-2.4) mg/dl PG Care Time/CCT Total # of Minutes Spent Total Time Spent with Patient: Total time spent is greater than 50% in coordination of care (as documented) at patient's floor/unit and/or counseling patient: Coding Level of Care Code 48165 SUB INP/OBS CARE 2/35MIN Diagnoses Chronic pancreatitis K86.1
--- NOTE | 2024-11-23 16:02 | Discharge Summary ---
Date of Service November 23, 2024 Admission HPI Per Admitting Provider 38-year-old female coming from [facility] ( on [facility] for suicidal ideation) with past medical significant for alcoholism, GERD, chronic pancreatitis as per patient comes because of abdominal pain. Patient states she is in [facility] for last 7 days. She was drinking prior to admission to [facility] but she states she was cutting back on alcohol and could not quantify how much she was drinking. Patient states she has chronic pancreatitis and she had 3 procedures done in the past in [facility] and 3 stents were placed and there is a plan for camille procedure. Since last couple of days she is having severe epigastric abdominal pain which is radiating to her back. Could not take deep breath because of pain. And also having lower chest pain. Denies any cough. Afebrile. No headache or runny nose. Has some sore throat. States she is having some diarrhea. Micturating okay. She is constantly crying and asking for pain medications and states she is hurting a lot. States Dilaudid 1 mg helps her pain. Hemodynamics are okay. Past medical history. As mentioned above. Past surgical history. Patient says procedures for pancreatitis. Denies any other surgeries. Social history. Vapes. Drinks alcohol but could not confide. Denies any drug use. Family history. Denies any family history. Admission Exam Per Admitting Provider General-Not in distress. Crying Head- atraumatic Eyes- PERRL. ENT- oropharynx clear Neck- supple, no JVD. Lungs- clear to auscultation no wheezing or crackles. Heart- regular rhythm; no murmur, no gallop. Abdomen- normal bowel sounds, soft, epigastric tenderness with guarding present, no distension Extremities- no pretibial edema, no erythema seen Neuro- alert, oriented PERRL, no facial palsy; no dysarthria; moves extremities Principal Diagnosis Abdominal pain, hx of chronic pancreatitis Discharge Exam General- obese adult F, Not in distress. Head- atraumatic Eyes- PERRL. Neck- supple, no JVD. Lungs- clear to auscultation no wheezing or crackles. Heart- regular rhythm; no murmur Abdomen- normal bowel sounds, soft, +epigastric tenderness (improved), no distension, no guarding Extremities- no pretibial edema, no erythema seen, moves extremities Neuro- alert, oriented PERRL, no facial palsy; no dysarthria; moves extremities Discharge Data Allergies Allergy/AdvReac Type Severity Reaction Status Date / Time aluminum Allergy Unknown ON [facility] Verified 11/21/24 20:48 MED LIST Consultations 11/21/24 21:04 ED Decision to Admit Stat 11/22/24 08:00 Consult Gastroenterology Routine Consult Psychiatry Routine Ordered Studies 11/21/24 18:22 CT Abd and Pelvis [CT abd pelvis IV con only] Stat FINDINGS: Lung Bases/Inferior Mediastinum: Unremarkable Liver: Unremarkable Gallbladder: Unremarkable Spleen: Unremarkable Adrenals: Unremarkable Pancreas: The pancreatic head and uncinate process appear unremarkable. The proximal pancreatic ductIs mildly dilated measuring up to 0.4 cm in diameter. There is moderate atrophy of the body and tail of the pancreas. No acute inflammation surrounding the pancreas. Kidneys: Unremarkable Stomach/Bowel: Distal esophagus, stomach, duodenum are unremarkable. The small bowel loops are normal in caliber. The colon is normal in caliber.Normal caliber appendix is identified. Lymph nodes: Unremarkable Vasculature: Unremarkable Pelvis: Urinary bladder is unremarkable. Fibroid along the uterine fundus. No suspicious adnexal mass. Small volume of nonspecific free pelvic fluid may be physiologic. Soft Tissues: Unremarkable Bones: Moderate degenerative disc disease at L5-S1. Mild degenerative changes elsewhere in the spine. IMPRESSION: 1. No acute findings in the abdomen or pelvis. 2. Proximal pancreatic duct is mildly dilated measuring 0.4 cm in diameter. Moderate atrophy of the body and tail of the pancreas. The pancreatic head and uncinate process appears normal in size and morphology. Further evaluation is recommended with pancreatic mass protocol abdominal MRI and MRCP to exclude the possibility of an occult pancreatic mass. 3. Numerous additional chronic and/or incidental findings as detailed above. ACT 112: Positive. There are findings on this exam that require communication between the performing entity and the patient following Patient Test Result Information Act ([place] ACT 112) guidelines. Electronically signed by Gaston Peña 11-21-2024 8:22 PM Hospital Course (1) Abdominal pain: 38 yo F coming from [facility] ( on for suicidal ideation) with past medical significant for alcoholism, GERD, chronic pancreatitis as per patient comes because of abdominal pain. Patient states she is in [facility] for last 7 days. She was drinking [facility] to [facility] but she states she was cutting back on alcohol and could not quantify how much she was drinking. Patient states she has chronic pancreatitis and she had 3 procedures done in the past in [facility] and 3 stents were placed and there is a plan for camille procedure. Since last couple of days she is having severe epigastric abdominal pain which is radiating to her back. Could not take deep breath because of pain. And also having lower chest pain. Denies any cough. Afebrile. No headache or runny nose. Has some sore throat. States she is having some diarrhea. Micturating okay. She is constantly crying and asking for pain medications and states she is hurting a lot. States Dilaudid 1 mg helps her pain. Hemodynamics are okay. Abdominal pain Epigastric region Patient states has history of chronic pancreatitis History of alcoholism CT abdomen pelvis shows proximal pancreatic duct mild dilated. Moderate atrophy of the body and tail the pancreas. And further evaluation recommended Will keep her n.p.o., IV fluids, IV Dilaudid as needed., IV Pepcid Continue home [facility] GI consulted and discussed with - Clinically improved. Resolving pancreatitis flare. Tolerating regular diet. Okay for discharge from GI standpoint. She will follow-up with her primary GI team at [facility] in [place]. Suicidal ideation Patient currently denies any thoughts to hurt herself or others Coming from [facility] consulted and discussed with - pls see their note for full detail. Pt can leave AMA. Started gabapentin 300 tid. Anemia will follow stool for hemeoccult. Hgb 9-10 iron studies and vitamin b12 (197) and folate levels follow up as outpt Total Time Total Time Spent Total Time Spent (In Minutes): 40 Discharge Plan Discharge Items Patient Disposition: Home - Self-Care Reason For Visit: ABDOMINAL PAIN Discharge Diagnosis: Abdominal pain, hx of chronic pancreatitis Condition on Discharge: Fair Activity: Per Instructions section Non-emergency contact: Primary Care Provider, Specialist and [employer] Developer Call non-emergency contact if: you have any medication questions and your symptoms worsen Follow-up/Referrals: PCP,NO [Primary Care Provider] - Diet: Low Fat Addtl Attending Provider Instructions: Follow up with your primary care doctor, and pressroom supervisor. Advance your diet as tolerated. Recommend low fat foods. Make sure to stay well hydrated. Pending Studies at Discharge: No Stand-Alone Forms: [employer], Smoking Cessation Medications and DC Order Prescriptions: New gabapentin 300 mg Capsule 300 mg PO TID Qty: 20 0RF oxycodone 10 mg tablet 10 mg PO Q4H PRN (Reason: pain) Qty: 7 0RF Continued multivitamin Tablet 1 tab PO DAILY acetaminophen [Tylenol] 325 mg Tablet 650 mg PO Q6H PRN (Reason: Pain) loperamide 2 mg Capsule 2 mg PO Q4H PRN (Reason: Diarrhea) Rx Instructions: administer after each loose stool until symptoms controlled; do not exceed 8 mg per 24 hrs trazodone 50 mg Tablet 50 mg PO HS clonazepam 1 mg Tablet 2 mg PO Q4H PRN (Reason: Alcohol Withdrawal) thiamine HCl (vitamin B1) [Vitamin B-1] 100 mg Tablet 100 mg PO DAILY melatonin 3 mg Tablet 6 mg PO HS PRN (Reason: Insomnia) pantoprazole 40 mg Tablet,Delayed Release (Dr/Ec) 40 mg PO DAILY nicotine 21 mg/24 hr Patch 24 Hour 1 patch TRANSDERMAL DAILY PRN (Reason: Smoking Cessation) folic acid 1 mg Tablet 1 mg PO DAILY oxycodone 5 mg Tablet 10 mg PO BID PRN (Reason: Pain) Ensure Liquid 1 ea PO PC PRN (Reason: IF PT UNABLE TO EAT.) cholecalciferol (vitamin D3) [Vitamin D3] 125 mcg (5,000 unit) Tablet 125 mcg PO DAILY Discontinued nitrofurantoin monohyd/m-cryst [Macrobid] 100 mg Capsule 100 mg PO BID Rx Instructions: STARTED 11/18/24, ENDS 11/23/24. must administer with a meal/food Discharge Orders: Discharge Order (Routine); Ordered 11/23/24 Ordered By: David Ambrosio Admission Data Admit Date/Time: 11/21/24 22:19 Attending Provider: David Ambrosio Admit Provider: Inder Gutierrez Primary Care Provider: PCP,NO Other Providers: Inder Gutierrez; Nesha Sanchez; Dong Millan I Other Interventions: Discharge Summary Assessment (RN) Last Done: 11/23/24 16:06
== END 2024-11-23 16:39 | disposition home or self-care (01) | DRG 392 ==
LOC: ED 18:14 → INTOOBSV 22:19 → EDINP 22:19 → 3E 23:26
DX: F17.290 Nicotine dependence, other tobacco product, uncomplicated; D64.9 Anemia, unspecified; K86.1 Other chronic pancreatitis; Z88.8 Allergy status to other drugs, medicaments and biological substances; R45.851 Suicidal ideations; Z79.899 Other long term (current) drug therapy; R10.13 Epigastric pain; F43.23 Adjustment disorder with mixed anxiety and depressed mood; K21.9 Gastro-esophageal reflux disease without esophagitis; F10.20 Alcohol dependence, uncomplicated